=== PATIENT | male | born 1970 | race Caucasian/White ===

== ENCOUNTER 2016-07-20 09:49 | Emergency (ER) | payer MEDICAID ==
[2016-07-20 09:56] VITALS: RESP 18; TEMP 98.1; BMI 31.0
[2016-07-20 10:41] LABS: BASO % 0.8 % (0.0-2.0); EOS # 0.1 K/uL (0.0-0.7); EOS % 1.9 % (0.0-4.0); HEMATOCRIT 36.2 % (35.0-51.0); LYMPH # 1.2 K/uL (1.0-4.3); LYMPH % 30.7 % (20.0-40.0); MEAN CORPUSCULAR HGB CONC 33.9 g/dL (33.0-37.0); MEAN PLATELET VOLUME 9.4 fL (7.2-11.7); MONO # 0.4 K/uL (0.0-0.8); MONO % 11.6 % (0.0-10.0); RED CELL DISTRIBUTION WIDTH 14.3 % (11.5-14.5); WHITE BLOOD COUNT 3.8 K/uL (4.8-10.8)
--- NOTE | 2016-07-20 10:47 | C.PDOC ---
History Of Present Illness 46-year-old male, presents to the emergency department with complaints of leg redness. Patient states he was mowing two days ago, after which he developed diffuse redness to the right lower leg. Patient is unsure of whether he was bit by an insect. Notes associated chills. Denies nausea/vomiting, diarrhea. Time Seen by Provider: 07/20/16 10:00 Chief Complaint (Nursing): Abnormal Skin Integrity History Per: Patient History/Exam Limitations: no limitations Onset/Duration Of Symptoms: Days Current Symptoms Are (Timing): Still Present Past Medical History Reviewed: Historical Data, Nursing Documentation, Vital Signs Vital Signs: Last Vital Signs Temp 98.1 F 07/20/16 09:54 Pulse 79 07/20/16 13:37 Resp 18 07/20/16 13:37 BP 134/85 07/20/16 13:37 Pulse Ox 95 07/20/16 13:37 - Medical History PMH: Denies: Arthritis, Chronic Kidney Disease Family History: States: No Known Family Hx - Social History Hx Alcohol Use: No Hx Substance Use: Yes (HEROIN) - Immunization History Hx Tetanus Toxoid Vaccination: No Hx Influenza Vaccination: No Hx Pneumococcal Vaccination: No Review Of Systems Except As Marked, All Systems Reviewed And Found Negative. Constitutional: Positive for: Chills. Negative for: Fever Gastrointestinal: Negative for: Nausea, Vomiting Skin: Positive for: Other (redness to right lower leg) Physical Exam - Physical Exam Appears: Non-toxic, No Acute Distress Skin: Warm, Dry, Other (RIGHT LOWER EXT: NON-BLANCHING, ERYTHEMATOUS AREA WITH NO STREAKING OR LYMPH NODES) Head: Atraumatic, Normacephalic Eye(s): bilateral: Normal Inspection Oral Mucosa: Moist Lips: Normal Appearing Neck: Normal ROM Cardiovascular: Rhythm Regular, No Murmur Respiratory: Normal Breath Sounds, No Accessory Muscle Use Extremity: Normal ROM Neurological/Psych: Oriented x3 ED Course And Treatment - Laboratory Results Result Diagrams: 07/20/16 10:38 07/20/16 10:38 Lab Interpretation: Abnormal Interpretation Of Abnormal: decrease platlets O2 Sat by Pulse Oximetry: 98 Pulse Ox Interpretation: Normal Progress Note: Treated with clindamycin 600 mg IV. On re-evaluation lungs clear. Skin marked. Patient instructed to follow up with ID and PMD in 24 hrs. Return to ED if any increase symptoms Reassessment Condition: Improved Disposition Counseled Patient/Family Regarding: Studies Performed, Diagnosis, Need For Followup, Rx Given - Disposition Referrals: Rudi Ackerman MD [Staff Provider] - Kiley Albrecht MD [Staff Provider] - Disposition: HOME/ ROUTINE Disposition Time: 13:30 Condition: IMPROVED Additional Instructions: Return to ED if any increase symptoms Follow up with ID for further evaluation Prescriptions: Clindamycin [Cleocin] 300 mg PO Q8 #21 cap Instructions: Cellulitis (ED) - POA Present On Arrival: None - Clinical Impression Clinical Impression: Contact dermatitis, Cellulitis - Scribe Statement The provider has reviewed the documentation as recorded by the Johnie Dhaliwal All medical record entries made by the Johnie were at my direction and personally dictated by me. I have reviewed the chart and agree that the record accurately reflects my personal performance of the history, physical exam, medical decision making, and the department course for this patient. I have also personally directed, reviewed, and agree with the discharge instructions and disposition.
[2016-07-20 10:52] LABS: CHLORIDE 99 mmol/L (98-107); MEAN CELL VOLUME 85.6 fL (80.0-94.0); SODIUM 138 mmol/L (132-148)
[2016-07-20 10:54] LABS: AST/SGOT 87 U/L (17-59); BILIRUBIN,TOTAL 1.8 mg/dL (0.2-1.3); CARBON DIOXIDE 29 mmol/L (22-30); GFR AFRICAN-AMERICAN > 60; TOTAL PROTEIN 8.4 g/dL (6.3-8.3)
[2016-07-20 10:55] LABS: ALKALINE PHOSPHATASE 52 U/L (38-126); ALT/SGPT 63 U/L (21-72); BLOOD UREA NITROGEN 16 mg/dL (9-20); CALCIUM 8.6 mg/dl (8.6-10.4); GLUCOSE,RANDOM 124 mg/dL (75-110)
[2016-07-20] MEDS ORDERED: Clindamycin 600mg/50ml D5W 600 MG/50 ML VIAL IVPB ONE (12:06)
[2016-07-20] MEDS ORDERED: Clindamycin 600mg/50ml D5W 600 MG/50 ML VIAL IVPB SCH (12:15)
[2016-07-20] MEDS: Clindamycin 600mg/50ml D5W 600 MG/50 ML VIAL IVPB STA (12:20)
[2016-07-20 13:37] VITALS: BP 134/85; PULSE 79
[2016-07-20 18:16] VITALS: O2SAT 98
== END 2016-07-20 13:37 | disposition home or self-care (01) ==
LOC: C.ER 09:49
DX: L03.115 Cellulitis of right lower limb (principal); L25.9 Unspecified contact dermatitis, unspecified cause